=== PATIENT | female | born 2000 | race Caucasian/White ===

== ENCOUNTER 2021-10-21 03:46 | Emergency (ER) | payer OTHER ==
[2021-10-21 04:38] LABS: HEMOGLOBIN 13.8 gm/dl (12.3-15.3); RED BLOOD COUNT 4.57 M/UL (4.00-5.10); WHITE BLOOD COUNT 4.9 K/UL (4.5-11.0)
[2021-10-21 05:11] LABS: BUN/CREATININE RATIO 16 (0-10)
[2021-10-21] MEDS ORDERED: ZOFRAN ODT 4 MG4 MG PO (05:43)
== END 2021-10-21 05:37 | disposition home or self-care (01) ==
LOC: ER1 03:46
PROVIDERS: Family Medicine
DX: F10.129 Alcohol abuse with intoxication, unspecified (principal); R11.2 Nausea with vomiting, unspecified; Y90.7 Blood alcohol level of 200-239 mg/100 ml
CPT/HCPCS: 71045; 80053; 83735; 84703; 85025; 96374; 99284; G0480; J2405; J7030

== ENCOUNTER 2021-12-12 18:48 | Emergency (ER) | payer OTHER ==
[~2021-12-12 18:48] MED LIST: ZOFRAN ODT 4 MG4 MG PO
== END 2021-12-12 19:59 | disposition home or self-care (01) ==
LOC: ER1 18:48
DX: B34.9 Viral infection, unspecified (principal); Z20.822 Contact with and (suspected) exposure to COVID-19
CPT/HCPCS: 99282; U0003

== ENCOUNTER 2022-06-17 04:52 | Emergency (ER) | payer OTHER ==
[2022-06-17] MEDS ORDERED: BACTROBAN OINT22 GM EXT (07:30)
[2022-06-18 07:10] LABS: HIV AB/P24 AG SCREEN Non Reactive (Non Reactive)
[2022-06-18 08:14] LABS: HBSAG SCREEN Negative (Negative); HCV AB 0.1 (0.0-0.9); HEP A AB, IGM Negative (Negative); HEP B CORE AB, IGM Negative (Negative)
[2022-06-19 06:11] LABS: CHLAMYDIA TRACHOMATIS, NAA Negative (Negative); NEISSERIA GONORRHOEAE, NAA Negative (Negative)
[2022-06-19 15:11] LABS: TREPONEMA PALLIDUM ANTIBODIES Non Reactive (Non Reactive)
== END 2022-06-17 08:05 | disposition home or self-care (01) ==
LOC: ER1 04:52
PROVIDERS: Emergency Medicine
DX: Z04.41 Encounter for examination and observation following alleged adult rape (principal); S80.211A Abrasion, right knee, initial encounter; S50.311A Abrasion of right elbow, initial encounter; F17.200 Nicotine dependence, unspecified, uncomplicated; X58.XXXA Exposure to other specified factors, initial encounter
CPT/HCPCS: 80074; 84703; 86780; 87210; 87389; 90471; 90715; 96372; 99284; J0696